=== PATIENT | male | born 1965 | race Caucasian/White ===

== ENCOUNTER 2018-07-29 19:01 | Emergency (ER) | payer SELFPAY ==
[~2018-07-29] VITALS: Ht 172.7 cm; Wt 95.9 kg
[2018-07-29 19:14] VITALS: BP 146/81; PULSE 77; RESP 18; Ht 172.7 cm; Wt 95.9 kg
[2018-07-30] MEDS ORDERED: CEPH-443 PO (00:18)
[2018-07-30] MEDS ORDERED: CEFTRIAXONE 1 GM INJ IM ONE (00:30)
[2018-07-30] MEDS ORDERED: LIDOCAINE 1% (MPF) 5 ML VIAL IM ONE (00:30)
--- NOTE | 2018-07-30 01:55 | ERD ---
ER Documentation Chief Complaint Chief Complaint DYSURIA, HEATURIA X'S 3 DAYS. HX OF KIDNEY STONES HPI History of Present Illness: Patient coming in today accompanied by with complaint of dysuria. Reports painful urination has been present for 1 week. Hematuria has been present for 3 days. Patient reports history of kidney stones, but reports this but this pain feels differently. Denies systemic signs of infection including fever, chills, altered mental status, abdominal pain. At home pharmacological/nonpharmacological treatment for symptoms: NONE Denies social concerns; Denies recent foreign travel ROS All systems reviewed and are negative except as per history of present illness. Medications Home Meds Active Scripts Cephalexin* (Keflex*) 500 Mg Capsule, 500 MG PO Q6 for urine infection for 10 Days, #28 CAP Prov:SANGEETHA DAMON V [employer] 07/30/18 Allergies Allergies: Coded Allergies: No Known Allergy (Unverified , 07/29/18) PMhx/Soc Medical and Surgical Hx: pt denies Medical Hx History of Surgery: Yes (URINARY PROBLEM WHEN 1 YEARS OLD) Hx Alcohol Use: No Hx Substance Use: No Hx Tobacco Use: No Smoking Status: Former smoker FmHx Family History: No diabetes, No coronary disease Physical Exam Vitals Vital Signs Date Temp Pulse Resp B/P (MAP) Pulse Ox O2 O2 Flow FiO2 Time Delivery Rate 07/29/18 97.9 77 18 146/81 98 19:14 (102) Physical Exam Const: No acute distress Head: Atraumatic Eyes: Normal Conjunctiva ENT: Normal External Ears, Nose and Mouth. Neck: Full range of motion. No meningismus. Resp: Clear to auscultation bilaterally Cardio: Regular rate and rhythm, no murmurs Abd: Soft, non distended. Normal bowel sounds. Suprapubic tenderness, no rigidity, no guarding, no grimacing. Skin: No petechiae or rashes Back: No midline or flank tenderness Ext: No cyanosis, or edema Neur: Awake and alert Psych: Normal Mood and Affect Result Diagram: 07/29/18 2221 Results 24 hrs Laboratory Tests Test 07/29/18 22:21 Urine Color YELLOW Urine Clarity SLIGHTLY CLOUDY Urine pH 6.0 Urine Specific [place] 1.005 Urine Ketones NEGATIVE mg/dL Urine Nitrite POSITIVE mg/dL Urine Bilirubin NEGATIVE mg/dL Urine Urobilinogen NEGATIVE mg/dL Urine Leukocyte Esterase 3+ Luke/ul Urine Microscopic RBC 29 /HPF Urine Microscopic WBC 140 /HPF Urine Bacteria MANY /HPF Urine Hemoglobin 3+ mg/dL Urine Glucose NEGATIVE mg/dL Urine Total Protein NEGATIVE mg/dl Sodium Level 140 mmol/L Potassium Level 3.8 mmol/L Chloride Level 103 mmol/L Carbon Dioxide Level 25 mmol/L Anion Gap 12 Blood Urea Nitrogen 12 mg/dl Creatinine 0.72 mg/dl Est Glomerular Filtrat Rate mL/min > 60 mL/min Glucose Level 94 mg/dl Calcium Level 9.1 mg/dl Total Bilirubin 0.6 mg/dl Direct Bilirubin 0.00 mg/dl Indirect Bilirubin 0.6 mg/dl Aspartate Amino Transf (AST/SGOT) 25 IU/L Alanine Aminotransferase (ALT/SGPT) 33 IU/L Alkaline Phosphatase 62 IU/L Total Protein 7.6 g/dl Albumin 4.6 g/dl Globulin 3.00 g/dl Albumin/Globulin Ratio 1.53 Current Medications Medications Dose Sig/Manuela Start Time Status Last (Trade) Ordered Route PRN Stop Time Admin Dose Reason Admin Ceftriaxone 1 gm ONCE ONCE 07/30/18 DC 07/30/18 Sodium IM 00:30 00:29 (Rocephin) 07/30/18 00:31 Lidocaine 2.1 ml ONCE ONCE 07/30/18 DC 07/30/18 (Xylocaine IM 00:30 00:29 1% (Mpf)) 07/30/18 00:31 Procedures/MDM ED course includes a thorough examination and history. Medications: --- Imaging: ---- Labs: Urinalysis, CMP Low suspicion for life-threatening medical emergency. Patient hemodynamically stable, patient afebrile. Otherwise healthy patient presenting with constellation of symptoms likely representing urinary tract infection as characterized by history, physical exam findings, lab findings. Urinalysis showing positive nitrates, WBCs, RBCs, hemoglobin, bacteria. CMP within normal limits, kidney function normal (no suspicion for kidney stone that is causing decreased kidney function/kidney injury) ED course includes administration of IM Rocephin due to severity of urinary tract infection. Will order urine culture. No respiratory distress, otherwise relatively well appearing and nontoxic. Patient educated on diagnoses, prescriptions, follow-up care, return precautions. Strict return precautions given for worsening condition; questions answered discharge. Disposition for discharge with followup in 2 days with PCP/clinic. Departure Diagnosis: Primary Impression: UTI (urinary tract infection) Urinary tract infection type: site unspecified Hematuria presence: with hematuria Qualified Codes: N39.0 - Urinary tract infection, site not specified; R31.9 - Hematuria, unspecified Condition: Stable Patient Instructions: Understanding Urinary Tract Infections (UTIs) Referrals: COMMUNITY CLINICS YOU HAVE RECEIVED A MEDICAL SCREENING EXAM AND THE RESULTS INDICATE THAT YOU DO NOT HAVE A CONDITION THAT REQUIRES URGENT TREATMENT IN THE EMERGENCY DEPARTMENT. FURTHER EVALUATION AND TREATMENT OF YOUR CONDITION CAN WAIT UNTIL YOU ARE SEEN IN YOUR DOCTORS OFFICE WITHIN THE NEXT 1-2 DAYS. IT IS YOUR RESPONSIBILITY TO MAKE AN APPOINTMENT FOR FOLOW-UP CARE. IF YOU HAVE A PRIMARY DOCTOR --you should call your primary doctor and schedule an appointment IF YOU DO NOT HAVE A PRIMARY DOCTOR YOU CAN CALL OUR PHYSICIAN REFERRAL HOTLINE AT IF YOU CAN NOT AFFORD TO SEE A PHYSICIAN YOU CAN CHOSE FROM THE FOLLOWING [facility] [address] [facility] [address] [address] [facility] [address] [facility] [facility] [address] [facility] [address] [facility] [address] [facility] [facility] [address] [facility] YOU HAVE RECEIVED A MEDICAL SCREENING EXAM AND THE RESULTS INDICATE THAT YOU DO NOT HAVE A CONDITION THAT REQUIRES URGENT TREATMENT IN THE EMERGENCY DEPARTMENT. FURTHER EVALUATION AND TREATMENT OF YOUR CONDITION CAN WAIT UNTIL YOU ARE SEEN IN YOUR DOCTORS OFFICE WITHIN THE NEXT 1-2 DAYS. IT IS YOUR RESPONSIBILITY TO MAKE AN APPOINTMENT FOR FOLOW-UP CARE. IF YOU HAVE A PRIMARY DOCTOR --you should call your primary doctor and schedule and appointment IF YOU DO NOT HAVE A PRIMARY DOCTOR YOU CAN CALL OUR PHYSICIAN REFERRAL HOTLINE AT . IF YOU CAN NOT AFFORD TO SEE A PHYSICIAN YOU CAN CHOSE FROM THE FOLLOWING [facility] INSTITUTIONS: [facility] [address] [place] [address] [facility] [address] [place] [address] [facility] [address] [place] [address] Additional Instructions: Thank you very much for allowing us to participate in your care. Your health and safety is our top priority at [facility]. It is important to read all discharge instructions and education provided in your discharge packet. Call your primary care doctor TOMORROW for an appointment during the next 2-4 days and bring all the information and medications prescribed. We will be doing a urine culture of the urine today; if the antibiotics are not appropriate for the type of bacteria that you having a urine we will contact you. Have prescriptions filled and follow precisely the directions on the label. If the symptoms get worse and your provider is unavailable, return to the Emergency Department immediately. SANGEETHA DAMON NP Jul 30, 2018 01:55
== END 2018-07-30 00:52 | disposition home or self-care (01) ==
LOC: FTE 19:01
DX: N39.0 Urinary tract infection, site not specified (principal); Z87.891 Personal history of nicotine dependence
CPT/HCPCS: 80053; 81001; 87086; 96372; 99284; J0696